=== PATIENT | male | born 1955 | race Caucasian/White ===

== ENCOUNTER 2022-10-16 09:59 | Outpatient (CLI) | payer OTHER, BC, SELFPAY ==
--- NOTE | 2022-10-16 10:15 | CRLHL7_ITS ---
For Patients: As a result of the Century Cures Act, medical imaging exams and procedure reports are released immediately into your electronic medical record. You may view this report before your referring provider. If you have questions, please contact your health care provider. Indication: Severe right arm pain Technique: MRI cervical spine without contrast: Sagittal STIR, T2 and T1 weighted sequences. The examination was terminated prematurely due to severe pain and no axial sequences were obtained. Comparison: Cervical radiographs 10/10/2022 and MRI 01/25/2017 Findings: There is straightening of normal cervical lordosis. Slight retrolisthesis at C4-5 and C5-6. The craniocervical junction is unremarkable. No prevertebral or paraspinal edema. No fractures. No aggressive osseous lesions. No definite abnormal intramedullary spinal cord signal on sagittal images. C1-2: No spinal canal stenosis. C2-3: No significant spinal canal stenosis or neural foramen narrowing. Modic type 2 endplate degenerative changes. C3-4: Slight retrolisthesis. Mild disc bulge. No significant spinal canal stenosis. Mild left neural foramen narrowing. C4-5: Resolution of the central disc protrusion. Slight worsening of disc height loss and disc dehydration. Minimal disc bulge. Modic type 2 endplate degenerative changes. No significant spinal canal stenosis. Mild bilateral neural foramen narrowing. C5-6: Disc osteophyte complex. No significant spinal canal stenosis. Uncovertebral joint hypertrophy results in similar moderate right neural foramina narrowing with possible impingement of the right C6 nerve roots. Moderate left neural foramen narrowing due to uncovertebral joint hypertrophy. C6-7: Disc osteophyte complex results in mild spinal canal narrowing. Moderate bilateral neural foramina narrowing due to uncovertebral joint hypertrophy. C7-T1: No significant spinal canal stenosis or neural foramen narrowing. T1-2: No significant spinal canal stenosis or neural foramen narrowing. Impression: 1. The examination was terminated prematurely due to severe pain. No axial sequences were obtained, which limits evaluation of the neural foramina 2. At C5-6, similar moderate right neural foramen narrowing due to uncovertebral joint hypertrophy with possible impingement of the right C6 nerve roots. Stable moderate left neural from narrowing. 3. At C6-7, moderate bilateral neural foramen narrowing due to uncovertebral joint hypertrophy. 4. Minimal narrowing of the spinal canal at C5-6 and C6-7. 5. No abnormal intramedullary spinal cord signal. Dictated by Hosea Avila MD @ 10/16/2022 12:29:38 PM (Electronically Signed)
== END 2022-10-16 10:00 | disposition home or self-care (01) ==
PROVIDERS: PCP Family Medicine; Visit Provider Family Medicine
DX: M79.601 Pain in right arm (principal); M79.2 Neuralgia and neuritis, unspecified; M50.222 Other cervical disc displacement at C5-C6 level; M50.223 Other cervical disc displacement at C6-C7 level
CPT/HCPCS: 72141

== ENCOUNTER 2022-11-20 07:11 | Outpatient (CLI) | payer OTHER, BC, SELFPAY ==
--- NOTE | 2022-11-20 07:15 | CRLHL7_ITS ---
For Patients: As a result of the Cures Act, medical imaging exams and procedure reports are released immediately into your electronic medical record. You may view this report before your referring provider. If you have questions, please contact your health care provider. Indication: Neck and right arm pain. Technique: MRI of the cervical spine was performed without the use of intravenous contrast. Comparison: None relevant available. Findings: Images mildly degraded by patient motion. The vertebral body heights appear maintained without evidence of fracture. No discrete T1 hypointense marrow infiltrating process. Mild multilevel disc height loss and desiccation. No abnormal cord signal. C2-3: No spinal canal or neural foraminal narrowing. C3-4: Trace retrolisthesis. No spinal canal narrowing. Mild to moderate right and mild left neural foraminal narrowing secondary to uncovertebral joint and facet hypertrophy. Stable. C4-5: Minimal disc bulge without spinal canal narrowing. Mild neural foraminal narrowing secondary to uncovertebral joint and facet hypertrophy. Stable. C5-6: Disc osteophyte complex with mild spinal canal narrowing. Moderate neural foraminal narrowing secondary to uncovertebral joint and facet hypertrophy. Stable. C6-7: Disc osteophyte complex with mild spinal canal narrowing. Moderate bilateral neural foraminal narrowing. Stable. C7-T1: No spinal canal or neural foraminal narrowing. Impression: 1. At C5-6 and C6-7, stable mild spinal canal with moderate neural foraminal narrowing. 2. Stable milder spondylosis at the remaining cervical levels. 3. No abnormal cord signal. Dictated by Arslan Damon MD @ 11/20/2022 10:00:40 AM (Electronically Signed)
== END 2022-11-20 07:12 | disposition home or self-care (01) ==
PROVIDERS: PCP Family Medicine; Visit Provider Physician Assistant
DX: M54.2 Cervicalgia (principal); M50.223 Other cervical disc displacement at C6-C7 level; M47.892 Other spondylosis, cervical region; M54.12 Radiculopathy, cervical region; M48.02 Spinal stenosis, cervical region
CPT/HCPCS: 72141

== ENCOUNTER 2024-10-17 09:37 | Emergency (ER) | payer MEDICARE, MEDICAID, SELFPAY ==
--- OUTSIDE RECORDS SUMMARY | 2024-10-17 09:39 | XMS_ITS | Continuity of Care Document ---
Author Organization [facility] Address [address] [place] [address] Phone Care Team Providers Care Caseworker Intake Name Role Phone Yazan Dee Unavailable Unavailab le Allergies, Adverse Reactions, Alerts Substance Reaction Status Criticality No Known Allergies Active No Inform ation Medications Medication Instructions Dosage Effective Dates (start - stop) Status Comments Valium 2 mg tablet take 1 tablet by oral route 30 mins prior to MRI scan and second tablet as needed for anxiety - Active IBUPROFEN (unknown strength) Not Available - Active GABAPENTIN (unknown strength) Not Available - Active Procedures Procedure Date OFFICE/OUTPATIENT VISIT EST Phone Office/Outpatient Visit,Hali Moses 2022 Advance Directives Directive Yes / No Effective Date File Name No Information Encounters Encounter Description Practice Location Reason(s) For Visit Diagnoses Date Provider Providers Copied on Encounter OFFICE/OUTPAT IENT VISIT EST Phone [facility], [address], [place], [id number], [place] tel:[phone] [facility] - [facility] No Information Sabrina Hand. [facility], [address], [address], [place], [address], [place]. tel:[phone] Referring Provider: Eladio Loaiza, [facility] [address] [place], [address]. tel:[phone] [place]pat [place] [place] [facility], [address], [place], [id number], [place] tel:[phone] [facility] - [place] Radiculopathy , cervical region Sabrina Hand. [facility], [address], [address], [place], [address], [place]. tel:[phone] Referring Provider: Eladio Loaiza, [facility] [address], [address]. tel:[phone] Family History Family Member Type Diagnosis Age At Onset No Information Payers Payer name Insurance type Covered constitution party ID Authoriza tion(s) No Information Social History Type Description Quantity Date Captured Comments Sex Male Smoking Status No Information Chief Complaint And Reason For Visit No Information Reason For Referral Reason For Referral No Information History Of Present Illness Encounter Date Complaint History Of Prese nt Illness No Information Functional Status Date Functional Assessmen t No Information Instructions Date Instruction Additional Infor mation No Information Assessments Type Assessment Date No Information Patient Care Teams Name Effective Dates (start - stop) Status Members No Information
--- OUTSIDE RECORDS SUMMARY | 2024-10-17 09:39 | XMS_ITS | Clinical Summary ---
Author Organization [facility] Address [address] [address] Phone Care Team Providers Care Hand Folder Name Role Phone Unavailable Primary Care Provider Unavailabl e Allergies No known active allergies Medications oxyCODONE (ROXICODONE) 5 MG immediate release tablet Take 1 Tab by mouth every four hours as needed for Pain . 10 Tab 06/06/2019 Active Social History Tobacco Use Types Packs/Day Years Used Date Smoking Tobacco: Never Assessed Sex and Gender Information Value Date Recorded Sex Assigned at Not on file Legal Sex Male 1:27 PM CDT Gender Identity Not on file Sexual Orientation Not on file Last Filed Vital Signs Vital Sign Reading Time Taken Comments Blood Pressure 138/74 06/06/2019 4:42 PM CDT Pulse 60 06/06/2019 4:42 PM CDT Temperature 36.7 C (98 F) 06/06/2019 4:42 PM CDT Respiratory Rate 18 06/06/2019 4:42 PM CDT Oxygen Saturation 95% 06/06/2019 4:42 PM CDT Inhaled Oxygen Concentration - - Weight 90.7 kg (200 lb) 06/06/2019 1:39 PM CDT Height 182.9 cm (6') 06/06/2019 1:39 PM CDT Body Mass Index 27.12 06/06/2019 1:39 PM CDT Plan of Treatment Not on file Insurance BL[employer]US PMAP
--- OUTSIDE RECORDS SUMMARY | 2024-10-17 09:39 | XMS_ITS | Encounter Summary ---
Author Organization [facility] Address [address] [place] [address] Care Team Providers Care Staff Genetic Counselor Name Role Phone Elsewhere, Pcp Primary Care Provider Unavailabl e Encounter Details Date Type Department Care Team (Latest Contact Info) Description 09/24/2024 8:11 AM MANAGER OF BUSINESS OPERATIONS - 09/24/2024 11:59 PM MANAGER OF BUSINESS OPERATIONS Hospital Encounter Department of Laboratory Medicine in [place], [place] [address] [place] [phone] Renny Mariano M.D. [address] [place] [phone] Department Of Transportation Examination Department Of Motor Vehicles Discharge Disposition: Home or Self Care Social History Tobacco Use Types Packs/Day Years Used Date Smoking Tobacco: Never Smokeless Tobacco: Never Alcohol Use Standard Drinks/Week Comments Yes 6 (1 standard drink = 0.6 oz pur e alcohol) PHQ-2 Answer Date Recorded PHQ-2 Score 0 03/28/2022 Nutrition Answer Date Recorded Nutrition: EVOO Fat Source 13 04/06 Nutrition: Servings of Fruits/Vegetables per Day Not on file 04/06/2020 Dental Answer Date Recorded Dental: Regular Dentist Unknown 11/11/19 21 Sex and Gender Information Value Date Recorded Sex Assigned at Not on file Legal Sex Male 10:20 PM MANAGER OF BUSINESS OPERATIONS Gender Identity Not on file Sexual Orientation Not on file documented as of this encounter Plan of Treatment Not on file documented as of this encounter Procedures Procedure Name Priority Date/Time Associated Diagnosis Comments URINALYSIS, DIPSTICK Routine 09/24/2024 8:20 AM MANAGER OF BUSINESS OPERATIONS Department Of Transportation Examination Department Of [employer] documented in this encounter Results * Urinalysis, Dipstick (09/24/2024 8:20 AM MANAGER OF BUSINESS OPERATIONS) Source Urine, Urine, Midstream 09/24/2024 8:20 AM MANAGER OF BUSINESS OPERATIONS NPCL Clarity Clear Clear 09/24/2024 8:23 AM MANAGER OF BUSINESS OPERATIONS NPCL Color Yellow 09/24/2024 8:23 AM MANAGER OF BUSINESS OPERATIONS NPCL Comment: ----REFERENCE VALUE---- Colorless Yellow Yoko Blood Negative Negative 09/24/2024 8:23 AM MANAGER OF BUSINESS OPERATIONS NPCL Nitrite Negative Negative 09/24/2024 8:23 AM MANAGER OF BUSINESS OPERATIONS NPCL Leukocyte Esterase Negative Negative 09/24/2024 8:23 AM MANAGER OF BUSINESS OPERATIONS NPCL Protein Negative mg/dL 09/24/2024 8:23 AM MANAGER OF BUSINESS OPERATIONS NPCL Comment: ----REFERENCE VALUE---- Negative Trace Glucose Negative Negative mg/dL 09/24/2024 8:23 AM MANAGER OF BUSINESS OPERATIONS NPCL Ketones, QI(U) Negative Negative mg/dL 09/24/2024 8:23 AM MANAGER OF BUSINESS OPERATIONS NPCL Bilirubin Negative Negative 09/24/2024 8:23 AM MANAGER OF BUSINESS OPERATIONS NPCL pH 7.0 5.0 - 8.0 09/24/2024 8:23 AM MANAGER OF BUSINESS OPERATIONS NPCL Specific [place] 1.020 1.001 - 1.035 09/24/2024 8:23 AM MANAGER OF BUSINESS OPERATIONS NPCL Urobilinogen 0.2 0.2 - 1.0 mg/dL 09/24/2024 8:23 AM MANAGER OF BUSINESS OPERATIONS NPCL Urine (Urine, Midstream) 09/24/2024 8:20 AM MANAGER OF BUSINESS OPERATIONS 09/24/2024 8:20 AM MANAGER OF BUSINESS OPERATIONS us Renny Mariano M.D. LAB URINE ORDERABLES Final Resu lt [facility] [address] [place] [id number], [facility] NPCL [facility] [place] - [address] [place] [address] documented in this encounter Visit Diagnoses Diagnosis Department Of Transportation Examination Department Of Motor Vehicles documented in this encounter Care Teams Staff Genetic Counselor Relationship Specialty Start Date End Date Elsewhere, Pcp PCP - General Family Medicine 12/12/17 documented as of this encounter
--- OUTSIDE RECORDS SUMMARY | 2024-10-17 09:39 | XMS_ITS | Encounter Summary ---
Author Organization [facility] Address [address] [place] [address] Care Team Providers Care Mechanical Laboratory Technician Name Role Phone Elsewhere, Pcp Primary Care Provider Unavailabl e Reason for Visit * Reason Onset Date Comments Form Review 09/24/2024 DOT Encounter Details Date Type Department Care Team (Latest Contact Info) Description 09/24/2024 Clinical Communication Department of Family Medicine in [place], [place] [address] [place] [phone] Renny Mariano M.D. [address] [place] [phone] Form Review (DOT) Social History Tobacco Use Types Packs/Day Years [...] on file Legal Sex Male 10:20 PM SUPERVISOR BRINE Gender Identity Not on file Sexual Orientation Not on file documented as of this encounter Miscellaneous Notes * Telephone Encounter - Nia Green L.P.NShari - 09/24/2024 4:31 PM SUPERVISOR BRINE DOT exam dated 09/24/[address] Mariano has been entered into the [facility] National Registry website and form sent to scanning. RVISOR BRINE documented in this encounter Plan of Treatment Not on file documented as of this encounter Visit Diagnoses Not on filedocumented in this encounter Care Teams Mechanical Laboratory Technician Relationship Specialty Start Date End Date Elsewhere, Pcp PCP - General Family Medicine 12/12/17 documented as of this encounter
--- OUTSIDE RECORDS SUMMARY | 2024-10-17 09:40 | XMS_ITS | Encounter Summary ---
Author Organization [facility] Address [address] [place] [address] Care Team Providers Care Valve Pipe Irrigator Name Role Phone Elsewhere, Pcp Primary Care Provider Unavailabl e Reason for Visit * Reason Comments DOT exam * Appointment Request (Routine) - Closed Specialty Diagnoses / Procedures Referred By Randall aguilera Referred To Contact Family Medicine Referral ID Status Reason Start Date Expiration Date Visits Re quested Visits Authorized [id number] Closed 09/12/2024 09/12/2025 1 1 Encounter Details Date Type Department Care Team (Latest Contact Info) Description 09/24/2024 8:30 AM OPERATIONS SECTION MANAGER Office Visit Department of Family Medicine in [place], [place] [address] [place] [phone] Renny Mariano M.D. [address] [place] [phone] Department Of Transportation Examination Department Of Motor Vehicles (Primary Dx); Blindness Legal; Loss Hearing Bilateral Social History Tobacco Use Types Packs/Day Years Used Date Smoking Tobacco: Never Smokeless Tobacco: Never Tobacco Cessation:Counseling Given: Yes Alcohol Use Standard Drinks/Week Comments Yes 6 (1 standard drink = 0.6 oz pur e alcohol) PHQ-2 Answer Date Recorded PHQ-2 Score 0 03/28/2022 Nutrition Answer Date Recorded Nutrition: EVOO Fat Source 13 04/06 Nutrition: Servings of Fruits/Vegetables per Day Not on file 04/06/2020 Dental Answer Date Recorded Dental: Regular Dentist Unknown 11/11/19 Sex and Gender Information Value Date Recorded Sex Assigned at Not on file Legal Sex Male 10:20 PM OPERATIONS SECTION MANAGER Gender Identity Not on file Sexual Orientation Not on file documented as of this encounter Last Filed Vital Signs Vital Sign Reading Time Taken Comments Blood Pressure 116/70 09/24/2024 8:23 AM OPERATIONS SECTION MANAGER Pulse 51 09/24/2024 8:23 AM OPERATIONS SECTION MANAGER Temperature 36.6 C (97.8 F) 09/24/2024 8:23 AM OPERATIONS SECTION MANAGER Respiratory Rate 20 09/24/2024 8:23 AM OPERATIONS SECTION MANAGER Oxygen Saturation - - Inhaled Oxygen Concentration - - Weight 88 kg (194 lb) 09/24/2024 8:23 AM OPERATIONS SECTION MANAGER Height 183 cm (6' 0.05) 09/24/2024 8:23 AM OPERATIONS SECTION MANAGER Body Mass Index 26.28 09/24/2024 8:23 AM OPERATIONS SECTION MANAGER documented in this encounter H&P Notes * Renny Mariano M.D. - 09/24/2024 8:30 AM CST SUBJECTIVE CHIEF COMPLAINT/REASON FOR VISIT DOT physical examination. HISTORY OF PRESENT ILLNESS Aron Hernandes is a 68 y.o. male who presents to the clinic today for DOT physical examination. This is his recertification. 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 He had right eye injury several years ago that damaged his retina. 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 He denies changes with his left eye vision.He is wearing glasses. He has history of color blindness. He was unable to distinguish green or redcolored. He was able to tell the traffic light signal by its position. He follows up with his triage assistant regularly in [place]. He has history of bilateral sensorineural hearing loss. He is using hearing aids. There is no concern regarding balance disorder, vertigo, loss of consciousness. He denies history of seizure disorder. He denies history of chronic heart disease or chronic lung disease. There is no concern regarding lightheadedness, near syncopal episode, headache, chest pain, palpitation, shortness of breath, orthopnea. He denies history of COPD or asthma. There is no concern regarding shortness of breath, wheezing, hemoptysis. He denies changes with his vision or hearing. He denies history of back surgery or neck surgery. There is no concern regarding being charged for DUI. He reports that he had his company driver license revoked approximately 6 months ago due to forgot to pay fines. He was able to redeem it. He denies history of major motor vehicle accident recently. There is no concern regarding syncope, balance disorder, hearing changes, seizure disorder, or obstructive sleep apnea. He reports that at times he has numbness on his hands and feet. He denies history of diabetes. 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 There was no history of fall. He was able to schedule an eye examination visit with his triage assistant in [place] later this morning. He brought the documentation that was signed off by the triage assistant. He was cleared and deemed to be safe to operate commercial motor vehicle. CURRENT MEDICATIONS None. ALLERGIES / CONTRAINDICATIONS No Known Allergies REVIEW OF SYSTEMS Reviewed as mentioned in HPI, the rest of review of systems are negative. MEDICAL HISTORY Right eye legally blind. Bilateral sensorineural hearing loss. Color blindness. SURGICAL HISTORY Right eye enucleation procedure. Appendectomy. Right knee arthroscopy procedure. SOCIAL HISTORY He is single. He is self-employed. He works as a mock and rancher. He denies smoking cigarettes or chewing tobacco. He drinks alcohol 2 servings on a nightly basis. He denies using recreational drugs. OBJECTIVE VITAL SIGNS BP 116/70 Pulse (!) 51 Temp 36.6 ??C Resp 20 Ht 183 cm Wt 88 kg BMI 26.28 kg/m?? PHYSICAL EXAMINATION General: Alert, oriented x3, not in acute distress. HEENT: Normocephalic. Right eye: There is noted prosthesis in place. Left eye: Pupil is round, reactive to light and accommodation. Extraocular muscles are intact. Ears: Tympanic membranes are intactbilaterally. No erythema or bulging. No effusion. Nose: Patent. No drainage. Pharynx: Membrane mucosa is moist. No hyperemia or exudates. Neck is supple. No cervical lymphadenopathy or thyromegaly. Cardiovascular: S1, S2, regular rate rhythm. No murmur or gallops. No JV distention or bruit. Lungs: Clear breath sounds. No crackles or expiratory wheezes. Abdomen: Soft, nontender. Bowel sounds heard in all 4 quadrants. : Circumcised penis. Testicles are descended bilaterally. No mass palpated. No hernia. Extremities: No edema on bilateral lower extremities. Gait is normal. He has good and full range ofmotion. He is able to do forward flexion, toe walking, heel walking, and squatting. Neuro: Cranial nerves II-XII grossly intact. No focal neurological deficit. Sensory is intact. Motor strength 5/5 on all 4 extremities. Coordination test is intact. Romberg test is negative. Skin: No rash. Right eye vision 20/0, corrected left eye 20/20. Horizontal field of vision 120 degree. He passes whispering test on both ears within 7 ft. Urine dipstick show specific gravity 1.020, negative for protein, glucose, or blood. ASSESSMENT / PLAN 1. DOT physical examination. 2. Right eye legally blind. 3. Color blindness. 4. Bilateral sensorineural hearing loss. Given the history of right eye legally blind(monocular vision), he is required to have alternative vision qualification standard examination. He was evaluated by his triage assistant earlier today and he had the vision evaluation report [id number] 5871 form completed accordingly. I reviewed the forearm and hewas cleared and deemed safe to operate commercial motor vehicle. He was provided DOT certificate that will qualify for 1 year. He was reminded that in the near future he should have his MCSA 5871 form completed prior to coming to see me. Typically he has 45 days timeframe from the form was signed. He is in understanding and agreement with the plan. ATIONS SECTION MANAGER documented in this encounter Plan of Treatment Not on file documented as of this encounter Results * Urinalysis, Dipstick (09/24/2024 8:20 AM OPERATIONS SECTION MANAGER) Source Urine, Urine, Midstream 09/24/2024 8:20 AM OPERATIONS SECTION MANAGER NPCL Clarity Clear Clear 09/24/2024 8:23 AM OPERATIONS SECTION MANAGER NPCL Color Yellow 09/24/2024 8:23 AM OPERATIONS SECTION MANAGER NPCL Comment: ----REFERENCE VALUE---- Colorless Yellow Yoko Blood Negative Negative 09/24/2024 8:23 AM OPERATIONS SECTION MANAGER NPCL Nitrite Negative Negative 09/24/2024 8:23 AM OPERATIONS SECTION MANAGER NPCL Leukocyte Esterase Negative Negative 09/24/2024 8:23 AM OPERATIONS SECTION MANAGER NPCL Protein Negative mg/dL 09/24/2024 8:23 AM OPERATIONS SECTION MANAGER NPCL Comment: ----REFERENCE VALUE---- Negative Trace Glucose Negative Negative mg/dL 09/24/2024 8:23 AM OPERATIONS SECTION MANAGER NPCL Ketones, QI(U) Negative Negative mg/dL 09/24/2024 8:23 AM OPERATIONS SECTION MANAGER NPCL Bilirubin Negative Negative 09/24/2024 8:23 AM OPERATIONS SECTION MANAGER NPCL pH 7.0 5.0 - 8.0 09/24/2024 8:23 AM OPERATIONS SECTION MANAGER NPCL Specific [place] 1.020 1.001 - 1.035 09/24/2024 8:23 AM OPERATIONS SECTION MANAGER NPCL Urobilinogen 0.2 0.2 - 1.0 mg/dL 09/24/2024 8:23 AM OPERATIONS SECTION MANAGER NPCL Urine (Urine, Midstream) 09/24/2024 8:20 AM OPERATIONS SECTION MANAGER 09/24/2024 8:20 AM OPERATIONS SECTION MANAGER us Renny Mariano M.D. LAB URINE ORDERABLES Final Resu lt [facility] [address] [place] [address], [facility] NPCL [address] [place] [id number] documented in this encounter Visit Diagnoses Diagnosis Department Of Transportation Examination Department Of Motor Vehicles- Primary Blindness Legal Loss Hearing Bilateral documented in this encounter Care Teams Valve Pipe Irrigator Relationship Specialty Start Date End Date Elsewhere, Pcp PCP - General Family Medicine 12/12/17 documented as of this encounter
--- OUTSIDE RECORDS SUMMARY | 2024-10-17 09:40 | XMS_ITS | Continuity of Care Document ---
Author Organization [facility] Address [address] [place] [address] Phone Care Team Providers Care Services Program Manager Name Role Phone Hollie De La Torre DO Unavailable Unavailab le Advance Directives Directive Yes / No Effective Date File Name No Information Encounters Encounter Description Practice Location Reason(s) For Visit Diagnoses Date Provider Providers Copied on Encounter [facility], [address], [place], [address], [place] [phone] [facility], No Information Dougie Browne. [address], [place], [address], [place]. tel:[phone] Family History Family Member Type Diagnosis Age At Onset No Information Payers Payer name Insurance type Covered green party ID Authoriza tion(s) No Information Social History Type Description Quantity Date Captured Comments Alcohol Use Details Unknown Caffeine Use Details Unknown Tobacco Use Status No Information Smoking Status No Information Sex Male Chief Complaint And Reason For Visit No [...]
--- OUTSIDE RECORDS SUMMARY | 2024-10-17 09:40 | XMS_ITS | Continuity of Care Document ---
Author Organization [facility] Address [address] [place] [address] Care Team Providers Care Senior Dot Net Developer Name Role Phone Elsewhere, Pcp Primary Care Provider Unavailabl e Source Comments Patient records contain information from all sites at [facility]. For routine questions regarding patient records, call [phone] during business hours, M-F 8:00 AM - 5:00 PM Central Time. Record requests for emergency care only can be directed to [phone] at any time.[facility] Encounters Date Type Department Care Team Description 09/24/2024 Clinical Communication Department of Family Medicine in [address] [address] Renny Mariano M.D. Form Review (DOT) 09/24/2024 8:11 AM SHOP FOREMAN - 09/24/2024 11:59 PM SHOP FOREMAN Hospital Encounter Department of Laboratory Medicine in [place] [address] [place] [address] Renny Mariano M.D. Department Of Transportation Examination Department Of Motor Vehicles Discharge Disposition: Home or Self Care 09/24/2024 8:30 AM SHOP FOREMAN Office Visit Department of Family Medicine in [address] [address] Renny Mariano M.D. Department Of Transportation Examination Department Of HihoCoder (Primary Dx); Blindness Legal; Loss Hearing Bilateral 02/05/2024 [facility] Emergency/Urgent Care Department [address] [place] [address] Francisco Javier Chino M.D., M.B.A. Med Refill 01/28/2024 8:53 AM CDT - 01/28/2024 9:20 AM CDT Emergency [place] Emergency/Urgent Care Department [facility] [address] [place] [address] Francisco Javier Chino M.D., M.B.A. Acute Bronchitis Due To COVID-19 (Primary Dx); Bursitis Discharge Disposition: Home or Self Care 08/11/2022 7:49 AM SHOP FOREMAN - 08/11/2022 9:16 AM SHOP FOREMAN Emergency [place] Emergency/Urgent Care Department [address] [place] [address], [place] [address] Venita Alonzo D.O. [place], Barrett R, M.D. Bronchiolitis With Respiratory Syncytial Virus (Primary Dx) Discharge Disposition: Home or Self Care 06/20/2022 2:45 PM CDT Office Visit Urgent Care, [facility], in [place] [address] [place] [address] Kinza Miller APRN, C.N.P., D.N.P. Paresthesia (Primary Dx); Swelling Foot Discharge Disposition: Home or Self Care 04/06/2022 Clinical Communication Department of Family Medicine in [place], [place] [address] [place] [address] Elsewhere, Pcp 03/28/2022 9:00 AM CDT Comprehensive Visit Department of Family Medicine in [place], [place] [address] [place] [address] Blair Rodriguez M.D. Edema (Primary Dx); Need Vaccine Immunization Tetanus And Diphtheria Toxoids And Pertussis; Screening Cancer Colon 03/10/2022 2:31 PM CDT - 03/10/2022 4:58 PM CDT Emergency [place] Emergency[facility]gent [facility] Department [address] [place] [address] Matt Woods M.D. Swelling Foot (Primary Dx) Discharge Disposition: Home or Self Care 07/21/2021 Orders Only [facility] Rosalva Alegre D.O., M.B.A. 03/22/2019 5:10 AM CDT - 03/22/2019 6:04 AM CDT Emergency [place] Emergency/Urgent Care Department [address] [place] [address] Maite Cleveland M.D. Strain Neck Initial (Primary Dx) Discharge Disposition: Home or Self Care 12/12/2017 9:00 AM CDT Diagnostic Department of Neurology in [place], [place] [address] [place] [address] Chaitanya Laurent M.D. Numbness Hand 07/04/2017 8:00 AM CDT - 07/04/2017 11:59 PM CDT Hospital Encounter [facility] Sebastian Dean M.D. 06/20/2017 6:14 AM CDT - 06/20/2017 10:23 AM CDT [facility] 06/13/2017 10:56 AM CDT - 06/13/2017 11:59 PM CDT Hospital Encounter [facility] Sebastian Dean M.D. 03/22/2016 10:48 AM CDT - 03/22/2016 11:59 PM CDT Hospital Encounter [facility]X [facility] Chaitanya Verdugo M.D. 08/09/2015 6:05 AM SHOP FOREMAN - 08/09/2015 6:52 AM SHOP FOREMAN [facility]. 08/21/2012 10:01 AM SHOP FOREMAN - 08/21/2012 11:59 PM SHOP FOREMAN Hospital Encounter HX NO MAPPING Raya Yoder APRN, C.N.P. Allergies No known active allergies Medications methylPREDNISo lone (MEDROL DOSEPAK) 4 mg tabletIndicati ons:Paresthesi a Follow package directions. 21 tablet 2 09/24/19 25 Discontinued dextromethorph an-guaiFENesin (ROBITUSSIN-DM ) 10-100 mg/5 mL syrup Take 5 mL by mouth every 4 (four) hours as needed for cough. 236 mL 2 09/24/19 25 Discontinued cephalexin (KEFLEX) 500 mg capsule Take 1 capsule (500 mg total) by mouth 3 (three) times a day. 21 capsule 4 09/24/19 25 Discontinued naproxen (NAPROSYN) 375 mg tablet Take 1 tablet (375 mg total) by mouth 2 (two) times a day with meals for 10 days. 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 Immunizations Immunization Administration Dates Next Due Influenza high dose QV(65 ye ars or older) (PF) 06/06/2021 RZV (SHINGRIX) 08/28/2019,04/24/2019 SARS-COV-2 (COVID-19) - PFIZ ER TS(Discontinued)(12 years or older) 03/28/2022 Tdap 03/28/2022,10/23/2011 influenza vaccine quad (FLUZONE/FLUARIX) (6 months and older)(PF) 07/05/2020,04/24/2019,06/28/2018,2014 Family History Medical History Relation Name Comments Heart attack Brother Heart attack Father Prostate cancer Father Relation Name Status Comments Brother Father Social History Smoking Status as of 10/17/2024 Tobacco Use Types Packs/Day Years Used Date Smoking Tobacco: Never Assessed PHQ-2 Answer Date Recorded PHQ-2 Score 0 03/28/2022 Nutrition Answer Date Recorded Nutrition: EVOO Fat Source 13 04/06 Nutrition: Servings of Fruits/Vegetables per Day Not on file 04/06/2020 Dental Answer Date Recorded Dental: Regular Dentist Unknown 11/11/19 21 Sex and Gender Information Value Date Recorded Sex Assigned at Not on file Legal Sex Male 10:20 PM SHOP FOREMAN Gender Identity Not on file Sexual Orientation Not on file Last Filed Vital Signs Vital Sign Reading Time Taken Comments Blood Pressure 116/70 09/24/2024 8:23 AM SHOP FOREMAN Pulse 51 09/24/2024 8:23 AM SHOP FOREMAN Temperature 36.6 C (97.8 F) 09/24/2024 8:23 AM SHOP FOREMAN Respiratory Rate 20 09/24/2024 8:23 AM SHOP FOREMAN Oxygen Saturation 97% 01/28/2024 9:00 AM CDT Inhaled Oxygen Concentration - - Weight 88 kg (194 lb) 09/24/2024 8:23 AM SHOP FOREMAN Height 183 cm (6' 0.05) 09/24/2024 8:23 AM SHOP FOREMAN Body Mass Index 26.28 09/24/2024 8:23 AM SHOP FOREMAN Plan of Treatment Not on file Procedures Procedure Name Priority Date/Time Associated Diagnosis Comments URINALYSIS, DIPSTICK Routine 09/24/2024 8:20 AM SHOP FOREMAN Department Of Transportation Examination Department Of The Mother List Vehicles INFLUENZA A, B, RSV, PCR, POCT STAT 01/28/2024 9:15 AM CDT SARS CORONAVIRUS 2, PCR RAPID, V STAT 01/28/2024 9:15 AM CDT DX CHEST AP OR PA AND LATERAL 2 VIEWS RAD - Semiurgent (Fast; most ED patients; some inpatients) 08/11/2022 8:16 AM SHOP FOREMAN ECG STAT 08/11/2022 8:07 AM SHOP FOREMAN INFLUENZA A, B, RSV, PCR, POCT Routine 08/11/2022 8:02 AM SHOP FOREMAN INFLUENZA A, B, RSV, PCR, POCT STAT 08/11/2022 7:55 AM SHOP FOREMAN SARS CORONAVIRUS 2, PCR RAPID, V STAT 08/11/2022 7:55 AM SHOP FOREMAN URINALYSIS WITH MICROSCOPIC Routine 03/28/2022 9:59 AM CDT Edema SEDIMENTATION RATE, B Routine 03/28/2022 9:55 AM CDT Edema C-REACTIVE PROTEIN (CRP), S/P Routine 03/28/2022 9:55 AM CDT Edema CREATININE WITH EGFR, S/P Routine 03/28/2022 9:55 AM CDT Edema US LOWER EXTREMITY VEINS RIGHT RAD - Semiurgent (Fast; most ED patients; some inpatients) 03/10/2022 3:34 PM CDT DX FOOT RIGHT 3+ VIEWS RAD - Semiurgent (Fast; most ED patients; some inpatients) 03/10/2022 3:27 PM CDT MORPHOLOGY EVALUATION STAT 03/10/2022 2:56 PM CDT URIC ACID, S/P STAT 03/10/2022 2:56 PM CDT CBC WITH DIFFERENTIAL, B STAT 03/10/2022 2:56 PM CDT EMG Routine 12/12/2017 8:01 AM CDT Numbness Hand DX KNEE RIGHT 4+ VIEWS Routine 06/13/2017 11:39 AM CDT US LOWER EXTREMITY VEINS LEFT Routine 03/22/2016 11:30 AM CDT DX CHEST AP OR PA AND LATERAL 2 VIEWS Routine 08/21/2012 10:18 AM SHOP FOREMAN OPHTHALMOLOGY IMAGE EXAM Routine 03/27/2000 12:00 PM CDT Results * Urinalysis, Dipstick (09/24/2024 8:20 AM SHOP FOREMAN) Source Urine, Urine, Midstream 09/24/2024 8:20 AM SHOP FOREMAN NPCL Clarity Clear Clear 09/24/2024 8:23 AM SHOP FOREMAN NPCL Color Yellow 09/24/2024 8:23 AM SHOP FOREMAN NPCL Comment: ----REFERENCE VALUE---- Colorless Yellow Yoko Blood Negative Negative 09/24/2024 8:23 AM SHOP FOREMAN NPCL Nitrite Negative Negative 09/24/2024 8:23 AM SHOP FOREMAN NPCL Leukocyte Esterase Negative Negative 09/24/2024 8:23 AM SHOP FOREMAN NPCL Protein Negative mg/dL 09/24/2024 8:23 AM SHOP FOREMAN NPCL Comment: ----REFERENCE VALUE---- Negative Trace Glucose Negative Negative mg/dL 09/24/2024 8:23 AM SHOP FOREMAN NPCL Ketones, QI(U) Negative Negative mg/dL 09/24/2024 8:23 AM SHOP FOREMAN NPCL Bilirubin Negative Negative 09/24/2024 8:23 AM SHOP FOREMAN NPCL pH 7.0 5.0 - 8.0 09/24/2024 8:23 AM SHOP FOREMAN NPCL Specific Galt 1.020 1.001 - 1.035 09/24/2024 8:23 AM SHOP FOREMAN NPCL Urobilinogen 0.2 0.2 - 1.0 mg/dL 09/24/2024 8:23 AM SHOP FOREMAN NPCL Urine (Urine, Midstream) 09/24/2024 8:20 AM SHOP FOREMAN 09/24/2024 8:20 AM SHOP FOREMAN us Renny Mariano M.D. LAB URINE ORDERABLES Final Resu lt [facility] [address] [place] [address], [facility] [place] [address] * SARS Coronavirus 2, PCR Rapid Symptomatic (01/28/2024 9:15 AM CDT) Only the most recent of2 resultswithin the time period is included. SARS CoV-2, PCR, Rapid, V Undetected Undetected 01/28/2024 9:25 AM CDT NPRG Comment: ----ADDITIONAL INFORMATION---- This RT-PCR test was performed using the [employer] SARS-CoV-2 and Influenza A/B Reagent assay from [employer], which has received Emergency Use Authorization(EUA) by the U.S. Food and Drug Administration. Fact sheets for this Emergency Use Authorization (EUA) assay can be found at the following links: For Healthcare Providers: https://www.fda.gov/media/219056/download For Patients: https://www.fda.gov/media/060021/download SARS Coronavirus 2, Source, Rapid Swab, Nasopharynx 01/28/2024 9:25 AM CDT NPRG Swab (Nasopharynx) 01/28/2024 9:15 AM CDT 01/28/2024 9:25 AM CDT Francisco Javier Chino M.D., M.B.A. LAB MICROBIOLOGY - GENERAL ORDERABLES Final Result Performing Organization Address [facility] Co de Phone Number [facility] [address] [place] [address], [place] [address] [place] [address] * Influenza A/B and RSV, PCR, Point of Care (01/28/2024 9:15 AM CDT) Only the most recent of3 resultswithin the time period is included. Pathologist [facility] Influenza A, POCT Negative Negative 01/28/2024 9:28 AM CDT NPRG Influenza B, POCT Negative Negative 01/28/2024 9:28 AM CDT NPRG Resp Syncytial Virus, POCT Negative Negative 01/28/2024 9:28 AM CDT NPRG Swab (Nasopharynx) 01/28/2024 9:15 AM CDT 01/28/2024 9:25 AM CDT Francisco Javier Chino M.D., M.B.A. LAB POCT ORDERABLE S - DEVICE Final Result Performing Organization Address [facility] Co de Phone Number [facility] [address] [place] [address], [place] [address] [place] [address] * DX Chest AP or PA and Lateral 2 Views (08/11/2022 8:16 AM SHOP FOREMAN) Only the most recent of2 resultswithin the time period is included. Anatomical Region Laterality Modality Chest, Thoracic RST LOS, Tho racic ARZ LOS, Thoracic FLA LOS N/A Digital Radiography 08/11/2022 8:21 AM SHOP FOREMAN Impressions 08/11/2022 8:22 AM SHOP FOREMAN Lungs are clear. Calcified hilar lymph nodes. Normal heart size. No change since 08/21/2012. Narrative 08/11/2022 8:22 AM SHOP FOREMAN EXAM: DX CHEST AP OR PA AND LATERAL 2 VIEWS Procedure Note Jeremy Euceda M.D. - 08/11/2022 EXAM: DX CHEST AP OR PA AND LATERAL 2 VIEWS IMPRESSION: Lungs are clear. Calcified hilar lymph nodes. Normal heart size. No changesince 08/21/2012. us Tri Peewee V. Alonzo D.O. IMG DIAGNOSTIC IMAGING PRO CEDURES Final Result * ECG 12 Lead (08/11/2022 8:07 AM SHOP FOREMAN) Ventricular Rate ECG/Min 61 BPM MUSE CO Interval 170 ms MUSE QRSD Interval 76 ms MUSE QT Interval 398 ms MUSE QTC Interval 400 ms MUSE P [place] 49 degrees MUSE R [place] 8 degrees MUSE T Wave [place] 38 degrees MUSE 08/11/2022 8:07 AM SHOP FOREMAN 08/11/2022 8:48 AM SHOP FOREMAN Impressions MUSE - 08/11/2022 8:17 AM SHOP FOREMAN Normal sinus rhythm Cannot rule out Inferior infarct No previous ECGs available Reviewed by KARLO Valdez Narrative Procedure Note Vasquez Lake M.D. - 08/11/2022 IMPRESSION: Normal sinus rhythm Cannot rule out Inferior infarct No previous ECGs available Reviewed by KARLO Valdez us Tri Peewee V. Alonzo D.O. ECG ORDERABLES Edited Res ult - Final MUSE NA * (ABNORMAL) Urinalysis with Microscopic: Urine, Midstream (03/28/2022 9:59 AM CDT) Source Urine, Urine, Midstream 03/28/2022 9:59 AM CDT NPCL Clarity Slightly Cloudy(A) Clear 03/28/2022 10:53 AM CDT NPCL Color Yellow 03/28/2022 10:53 AM CDT NPCL Comment: ----REFERENCE VALUE---- Colorless Yellow Yoko Blood Negative Negative 03/28/2022 10:53 AM CDT NPCL Nitrite Negative Negative 03/28/2022 10:53 AM CDT NPCL Leukocyte Esterase Negative Negative 03/28/2022 10:53 AM CDT NPCL Protein Negative mg/dL 03/28/2022 10:53 AM CDT NPCL Comment: ----REFERENCE VALUE---- Negative Trace Glucose Negative Negative mg/dL 03/28/2022 10:53 AM CDT NPCL Ketones, QI(U) Negative Negative mg/dL 03/28/2022 10:53 AM CDT NPCL Bilirubin Negative Negative 03/28/2022 10:53 AM CDT NPCL pH 6.5 5.0 - 8.0 03/28/2022 10:53 AM CDT NPCL Specific Galt 1.020 1.001 - 1.035 03/28/2022 10:53 AM CDT NPCL Urobilinogen 0.2 0.2 - 1.0 mg/dL 03/28/2022 10:53 AM CDT NPCL White Blood Cells Occ-3 /hpf 03/28/2022 12:26 PM CDT NPRG Comment: REVISED RESULTS ----REFERENCE VALUE---- Males: 0-3 Females: 0-10 Unknown: 0-10 ----PREVIOUSLY REPORTED ---- 11-20, Flagged as: Abnormal (Reported 03/28/2022 12:19) Red Blood Cells Occ-2 0 - 2 /hpf 12:19 PM CDT NPRG Dysmorphic Red Blood Cells <=25 <=25 % 03/28/2022 12:19 PM CDT NPRG Squamous Cells Occ-3 /hpf 03/28/2022 12:26 PM CDT NPRG Comment: REVISED RESULTS ----PREVIOUSLY REPORTED ---- 41-50, Flagged as: Normal (Reported 03/28/2022 12:19) Urine (Urine, Midstream) 03/28/2022 9:59 AM CDT 03/28/2022 9:59 AM CDT Blair Rodriguez M.D. LAB URINE ORDERABLES Edited Resu lt - Final [facility] [address] [place] [address], [facility] NPCL [facility] [address] [place] [address] NPRG [facility] [address] [place] [address] * Sedimentation Rate (03/28/2022 9:55 AM CDT) Sedimentation Rate, B 5 0 - 22 mm/1 h 03/28/2022 3:27 PM CDT MKTO Blood (Blood, Venous) 03/28/2022 9:55 AM CDT 03/28/2022 2:53 PM CDT Blair Rodriguez M.D. LAB BLOOD ADD-ON Final Result [facility] [address] [place] [address], [facility] MKTO [facility] [address] [place] [address] * CRP (C-Reactive Protein) (03/28/2022 9:55 AM CDT) C-Reactive Protein (CRP), P <3.0 <=8.0 mg/L 03/28/2022 10:41 AM CDT NPRG Blood (Blood, Venous) 03/28/2022 9:55 AM CDT 03/28/2022 10:07 AM CDT Blair Rodriguez M.D. LAB BLOOD ADD-ON Final Result [facility] [address] [place] [address], [place] NPRG [facility] [address] [place] [address] * Creatinine with Estimated GFR (03/28/2022 9:55 AM CDT) Creatinine 1.02 0.74 - 1.35 mg/dL 03/28/2022 10:41 AM CDT NPRG eGFR-Black/Afric an Sierra Leonean 88 >=60 mL/min/BSA 03/28/2022 10:41 AM CDT NPRG Comment: ----ADDITIONAL INFORMATION---- Estimated GFR calculated using the 2009 CKD_EPI creatinine equation. eGFR Non-Black/Vi n Sierra Leonean 76 >=60 mL/min/BSA 03/28/2022 10:41 AM CDT NPRG Comment: ----ADDITIONAL INFORMATION---- Estimated GFR calculated using the 2009 CKD_EPI creatinine equation. Blood (Blood, Venous) 03/28/2022 9:55 AM CDT 03/28/2022 10:07 AM CDT Blair Rodriguez M.D. LAB BLOOD ADD-ON Final Result [facility] [address] [place] [address], [facility] [place] [address] [place] [address] * US Lower Extremity Veins Right (03/10/2022 3:34 PM CDT) Anatomical Region Laterality Modality Lower Extremity, Ultrasound RST LOS, Ultrasound ARZ LOS, Ultrasound FLA LOS Right Ultrasound 03/10/2022 3:40 PM CDT Impressions 03/10/2022 3:45 PM CDT Negative for acute DVT. . Narrative 03/10/2022 3:45 PM CDT EXAM: US LOWER EXTREMITY VEINS RIGHT Exam performed with color and spectral Doppler analysis. COMPARISON: None. FINDINGS: RIGHT: Common Femoral Vein: Negative. . Profunda Femoral Vein: Negative. . Femoral Vein: Negative. . Popliteal Vein: Negative. . Gastrocnemius Veins: Negative where seen. . Soleal Veins: Negative where seen. . Posterior Tibial Veins: Negative where seen. . Peroneal Veins: Negative where seen. . Great Saphenous Vein: Negative where seen. . Small Saphenous Vein: Not evaluated. . Popliteal Fossa: Popliteal cyst measuring 4.5 x 1.4 x 0.7 cm. Other: n/a Information on venous thrombosis and management can be found on the Shut Down site. Link [email or web address] Procedure Note Harjinder León M.D. - 03/10/2022 EXAM: US LOWER EXTREMITY VEINS RIGHT Exam performed with color and spectral Doppler analysis. COMPARISON: None. FINDINGS: RIGHT: Common Femoral Vein: Negative. . Profunda Femoral Vein: Negative. . Femoral Vein: Negative. . Popliteal Vein: Negative. . Gastrocnemius Veins: Negative where seen. . Soleal Veins: Negative where seen. . Posterior Tibial Veins: Negative where seen. . Peroneal Veins: Negative where seen. . Great Saphenous Vein: Negative where seen. . Small Saphenous Vein: Not evaluated. . Popliteal Fossa: Popliteal cyst measuring 4.5 x 1.4 x 0.7 cm. Other: n/a Information on venous thrombosis and management can be found on theShut Down site. [email or web address] -[email or web address] 1725 IMPRESSION: Negative for acute DVT. . us Matt Woods M.D. IMG US PROCEDURES Final Resu lt * DX Foot Right 3+ Views (03/10/2022 3:27 PM CDT) Anatomical Region Laterality Modality Lower Extremity, Foot, Muscu loskeletal RST LOS, Musculoskeletal ARZ LOS, Muskuloskeletal FLA LOS Right Digit al Radiography 03/10/2022 3:31 PM CDT Impressions 03/10/2022 3:40 PM CDT Three-view right foot including AP view both feet demonstrates mild diffuse soft tissue swelling of the right foot. There is early degenerative change at the right second and third metatarsophalangeal joints. 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 Exam otherwise negative. Narrative 03/10/2022 3:40 PM CDT EXAM: DX FOOT RIGHT 3+ VIEWS Procedure Note Harjinder León M.D. - 03/10/2022 EXAM: DX FOOT RIGHT 3+ VIEWS IMPRESSION: Three-view right foot including AP view both feet demonstrates milddiffuse soft tissue swelling of the right foot. There is early degenerative change at theright second and third metatarsophalangeal joints. Mild degenerative arthritis left firstmetatarsal phalangeal joint. Exam otherwise negative. us Matt Woods M.D. IMG DIAGNOSTIC IMAGING [facility] Final Result * Morphology Evaluation (03/10/2022 2:56 PM CDT) RBC Morphology Normal 03/10/2022 3:29 PM CDT NPRG PLT Morphology Normal 03/10/2022 3:29 PM CDT NPRG PLT Estimate Adequate Adequate 03/10/2022 3:29 PM CDT NPRG Blood 03/10/2022 2:56 PM CDT 03/10/2022 2:59 PM CDT us Matt Woods M.D. LAB BLOOD ADD-ON Final Resul t [facility] [address] [place] [address], [facility] NPRG [facility] [address] [place] [address] * (ABNORMAL) CBC with Differential, Blood (03/10/2022 2:56 PM CDT) Hemoglobin 14.1 13.2 - 16.6 g/dL 03/10/2022 3:29 PM CDT NPRG Hematocrit 42.1 38.3 - 48.6 % 03/10/2022 3:29 PM CDT NPRG Erythrocytes 4.86 4.35 - 5.65 x10(12)/L 03/10/2022 3:29 PM CDT NPRG MCV 86.6 78.2 - 97.9 fL 03/10/2022 3:29 PM CDT NPRG RBC Distrib Width 14.8(H) 11.8 - 14.5 % 03/10/2022 3:29 PM CDT NPRG Platelet Count 209 135 - 317 x10(9)/L 03/10/2022 3:29 PM CDT NPRG Leukocytes 5.4 3.4 - 9.6 x10(9)/L 03/10/2022 3:29 PM CDT NPRG Neutrophils 2.45 1.56 - 6.45 x10(9)/L 03/10/2022 3:29 PM CDT NPRG Lymphocytes 1.96 0.95 - 3.07 x10(9)/L 03/10/2022 3:29 PM CDT NPRG Monocytes 0.82(H) 0.26 - 0.81 x10(9)/L 03/10/2022 3:29 PM CDT NPRG Eosinophils 0.15 0.03 - 0.48 x10(9)/L 03/10/2022 3:29 PM CDT NPRG Basophils 0.03 0.01 - 0.08 x10(9)/L 03/10/2022 3:29 PM CDT NPRG Blood (Blood, Venous) 03/10/2022 2:56 PM CDT 03/10/2022 2:59 PM CDT us Matt Woods M.D. LAB BLOOD ADD-ON Final Resul t [facility] [address] [place] [facility] [address], [facility] NPRG [facility] [address] [place] [address] * Uric Acid (03/10/2022 2:56 PM CDT) Uric Acid, P 4.6 3.7 - 8.0 mg/dL 03/10/2022 3:23 PM CDT NPRG Blood (Blood, Venous) 03/10/2022 2:56 PM CDT 03/10/2022 2:59 PM CDT us Matt Woods M.D. LAB BLOOD ADD-ON Final Resul t [facility] [address] [place] [address], [facility] NPRG [facility] [address] [place] [address] * EMG (12/12/2017 8:01 AM CDT) Impressions EMG - 12/12/2017 8:01 AM CDT Done Externally - Refer to [facility]. [facility] Administrative Closure us Chaitanya Laurent M.D. NEUROLOGY ORDERABLES Final Re sult EMG * DX Knee Right 4+ Views (06/13/2017 11:39 AM CDT) Anatomical Region Laterality Modality Lower Extremity, Knee Right Radiograph ic Imaging 06/13/2017 11:3 9 AM CDT Impressions 06/13/2017 1:27 PM CDT Mild degenerative changes with medial and lateral compartment chondrocalcinosis. No acute osseous abnormality right knee. Narrative 06/13/2017 1:27 PM CDT Standing AP/PA and sunrise views of the knees were obtained with lateral view of the right knee. FINDINGS: The joint spaces are well maintained. There is chondrocalcinosis involving both the medial and lateral compartments of the right and left knees. No significant right joint effusion identified. No acute osseous abnormality. Regional soft tissues normal in appearance. There is degenerative spurring involving the medial/lateral and patellofemoral compartments of the left knee. Procedure Note Matt Iniguez M.D. - 06/21/2017 Standing AP/PA and sunrise views of the knees were obtained with lateral view of the right knee. FINDINGS: The joint spaces are well maintained. There is chondrocalcinosis involving both the medial and lateral compartments of the right and left knees. No significant right joint effusion identified. No acute osseous abnormality. Regional soft tissues normal in appearance. There is degenerative spurring involving the medial/lateral and patellofemoral compartments of the left knee. IMPRESSION: Mild degenerative changes with medial and lateral compartment chondrocalcinosis. No acute osseous abnormality right knee. us Viki Gar(R)(CT), Cong(R) IMG DIAGNOSTIC IMAGING PROCEDURES Edited Result - Final * US Lower Extremity Veins Left (03/22/2016 11:30 AM CDT) Anatomical Region Laterality Modality Lower Extremity Left Ultrasound 03/22/2016 11:3 0 AM CDT Addenda Addendum by ProviderNapoleon M.D. on 03/22/2016 11:30 AM CDT RAD^^^MA US Venous Doppler Lower Ext Left 03/22/2016 11:30:00 Impressions 03/22/2016 11:43 AM CDT Negative for acute DVT, no evidence of a left lower extremity DVT. Left Rivera's cyst. Narrative 03/22/2016 11:43 AM CDT HISTORY: Lower left leg (ankle) swelling, abnormal / positive D-dimer. Technique: Grayscale and Doppler ultrasound imaging of the left lower extremity (and the right CFV) was performed. FINDINGS: Evaluation of the deep venous system in the left lower extremity demonstrates normal compressibility, Doppler blood flow, augmentation, and lack of intraluminal echogenicity at this time. There is a 3.9 x 1.6 x 1.3 cm left Rivera's (popliteal) cyst. Procedure Note Diego Ballesteros M.D. / ProviderNapoleon M.D. - 01/13/2017 HISTORY: Lower left leg (ankle) swelling, abnormal / positive D-dimer. Technique: Grayscale and Doppler ultrasound imaging of the left lower extremity (and the right CFV) was performed. FINDINGS: Evaluation of the deep venous system in the left lower extremity demonstrates normal compressibility, Doppler blood flow, augmentation, and lack of intraluminal echogenicity at this time. There is a 3.9 x 1.6 x 1.3 cm left Rivera's (popliteal) cyst. IMPRESSION: Negative for acute DVT, no evidence of a left lower extremity DVT. Left Rivera's cyst. us King Bynum R.V.T.SShari IMG US PROCEDUR ES Edited Result - Final * OPHTHALMOLOGY IMAGE EXAM (03/27/2000 12:00 PM CDT) Anatomical Region Laterality Modality Other 03/27/2000 12:0 0 PM CDT Addenda Addendum by Provider, Historical on 03/27/2000 12:00 PM CDT OPH^^^MCR US-Eye 03/27/2000 12:00:00 Historical Provider IMG NON RAD IMAGING PROCEDUR ES Final Result Visit Diagnoses Diagnosis Start Date Numbness Hand 12/12/2017 Strain Neck Initial 03/22/2019 Swelling Foot 03/10/2022 Edema 03/28/2022 Need Vaccine Immunization Tetanus And Diphtheria Toxoids And Pertussis 03/28/2022 Screening Cancer Colon 03/28/2022 Swelling Foot 04/06/2022 Paresthesia 06/20/2022 Swelling Foot 06/20/2022 Bronchiolitis With Respiratory Syncytial Virus 08/11/2022 Acute Bronchitis Due To COVID-19 01/28/2024 Bursitis 01/28/2024 Department Of Transportation Examination Department Of Motor Vehicles 09/24/2024 Department Of Transportation Examination Department Of Motor Vehicles 09/24/2024 Blindness Legal 09/24/2024 Loss Hearing Bilateral 09/24/2024 Additional Health Concerns Infection Onset Date Last Indicated Resolved Time Respiratory Syncytial Virus (RSV) 08/11/2022 022 08/11/2022 9:16 AM SHOP FOREMAN Care Teams Senior Dot Net Developer Relationship Specialty Start Date End Date Elsewhere, Pcp PCP - General Family Medicine 12/12/17
[2024-10-17 09:47] VITALS: BP 107/62; PULSE 54; RESP 20; TEMP 36.6; O2SAT 99; BMI 27.1
[2024-10-17 10:39] LABS: PCR FLU A Negative PCR FLU A (Negative); PCR FLU B Negative PCR FLU B (Negative); PCR RSV Negative PCR RSV (Negative); SARS PCR* Negative SARS-CoV-2 (Negative)
--- NOTE | 2024-10-17 11:29 | ED_ITS ---
HPI - General Adult General Chief complaint: Cough Stated complaint: Sore throat/Cough Time Seen by Provider: 10/17/24 11:22 History of Present Illness HPI narrative: This 68-year-old male comes in reporting upper respiratory symptoms that began almost 2 days ago. He reports cough, sore throat, nasal congestion. He does not report any fever. He arrives here with normal vital signs. Related Data Previous Rx's ?Medication ?Instructions ?Recorded acetaminophen 300 mg-codeine 30 mg 1 tab PO Q6H PRN pain #15 tabs 10/17/24 tablet Allergies Allergy/AdvReac Type Severity Reaction Status Date / Time No Known Drug Allergies Allergy Verified 08/15/23 11:33 Review of Systems Status of ROS: Reports: 10 or more systems reviewed and unremarkable except as noted in History and below Narrative: Constitutional: No fevers, no weight gain or loss. Eyes: No discharge. No vision changes. HENT: No congestion, no ear pain. He reports a sore throat. Cardiovascular: No chest pain, no palpitations. Respiratory: No shortness of breath, no wheezes. Frequent coughing. Gastrointestinal: No abdominal pain, no vomiting, no diarrhea. Genitourinary: No dysuria, no hematuria. Musculoskeletal: Normal range of motion. Skin: No rashes, no pruritis. Neurological: No dizziness, weakness, sensory change, speech change. Endo/Heme/Allergies: No bruising or bleeding. No polydipsia. Pysch: no suicidality, no anxiety, no insomnia. All other systems reviewed and are negative. 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 He drinks 1-2 alcoholic drinks approximately 5 times a week. Smoking Status: Never smoker Exam Narrative: Exam Narrative: Constitutional: Well-developed, well-nourished, no acute distress. HEENT: Normocephalic, atraumatic. Pharyngeal erythema without exudate or tonsillar hypertrophy. Neck: Normal range of motion. Nontender. Supple. Heart: Regular. No murmurs. Normal rate. Intact distal pulses. Lungs: Clear to auscultation. No chest discomfort. No wheezes, rhonchi, or rales. Abdomen: Normal bowel sounds. Nontender. No rebound tenderness. Genitalia: Deferred. Back: No midline tenderness. Normal range of motion. Extremities: Normal range of motion. No injury. Skin: Intact. No rash. Warm. No erythema or pallor. Neurologic: No altered sensation. No weakness. Alert and oriented. Psychiatric: No suicidality. No anxiety or depression. No insomnia. Nursing notes and vitals signs are reviewed. Const: Vital Signs, click to edit/add: Vital Signs - 24 hr 10/17/24 09:47 Temperature 97.8 F Pulse Rate [Pulse Oximeter] 54 L Respiratory Rate 20 Blood Pressure [Ri ght Upper Arm] 107/62 Pulse Oximetry 99 Oxygen Delivery Me thod Room Air Course Vital Signs Vital signs: Initial Vital Signs Temperature 97.8 F 10/17/24 09:47 Temperature Source Temporal Artery Scan 10/17/24 09:47 Pulse Rate 54 L 10/17/24 09:47 Respiratory Rate 20 10/17/24 09:47 Blood Pressure 107/62 10/17/24 09:47 Blood Pressure Mean 77 10/17/24 09:47 Pulse Oximetry 99 10/17/24 09:47 Oxygen Delivery Method Room Air 10/17/24 09:47 Vital Signs Temperature 97.8 F 10/17/24 09:47 Pulse Rate 54 L 10/17/24 09:47 Respiratory Rate 20 10/17/24 09:47 Blood Pressure 107/62 10/17/24 09:47 Pulse Oximetry 99 10/17/24 09:47 Oxygen Delivery Method Room Air 10/17/24 09:47 Temperature 97.8 F 10/17/24 09:47 Pulse Rate 54 L 10/17/24 09:47 Respiratory Rate 20 10/17/24 09:47 Blood Pressure 107/62 10/17/24 09:47 Pulse Oximetry 99 10/17/24 09:47 Oxygen Delivery Method Room Air 10/17/24 09:47 Medical Decision Making MDM Narrative Medical decision making narrative: This patient has upper respiratory infection symptoms. Nasal pharyngeal swab is obtained and returns negative for viruses tested. Nevertheless his symptoms are yet likely due to a virus. His exam is completely normal otherwise. Patient did receive an oral dose of dexamethasone 10 mg and I did provide a prescription for Tylenol 3. Lab Data Labs: Lab Results 10/17/24 Range/Units 09:51 SARS-CoV-2 (PCR) Negative SARS-CoV-2 (Negative) Influenza Type A (PCR) Negative PCR FLU A (Negative) Influenza Type B (PCR) Negative PCR FLU B (Negative) RSV (PCR) Negative PCR RSV (Negative) Discharge Plan Discharge Clinical Impression: Acute upper respiratory infection Patient Disposition: Home, Self-Care Condition: Stable Additional Instructions: Take medication as needed and indicated. Use [id number] cough medicine syrups also as needed and directed. Follow up with MD return if worsening. Prescriptions: New acetaminophen-codeine 300-30 mg tablet 1 tab PO Q6H PRN (Reason: pain) Qty: 15 0RF Follow Up/Referrals: Maged Beatty MD [Primary Care Provider] - Stand Alone Forms: StudyRoom Info Instructions
[2024-10-17] MEDS: dexAMETHasone 10 MG/ML inj PO (11:34)
[2024-10-17 11:43] VITALS: BP 113/85; PULSE 55; RESP 16
--- OUTSIDE RECORDS SUMMARY | 2024-10-17 11:43 | XMS_ITS | Encounter Summary ---
Author Organization [facility] Address [address] [place] [address] Care Team Providers Care Underground Electrician Name Role Phone Elsewhere, Pcp Primary Care Provider Unavailabl e Reason for Visit * Reason Comments DOT exam * Appointment Request (Routine) - Closed Specialty Diagnoses / Procedures Referred By Randall aguilera Referred To Contact Family Medicine Referral ID Status Reason Start Date Expiration Date Visits Re quested Visits Authorized [id number] Closed 09/12/2024 09/12/2025 1 1 Encounter Details Date Type Department Care Team (Latest Contact Info) Description 09/24/2024 8:30 AM OVERLOCK SLEEVE SETTER Office Visit Department of Family Medicine in [place], [place] [address] [place] [phone] Renny Mariano M.D. [address] [place] [phone] Department Of Transportation Examination Department Of Motor [...] on file Legal Sex Male 10:20 PM OVERLOCK SLEEVE SETTER Gender Identity Not on file Sexual Orientation Not on file documented as of this encounter Last Filed Vital Signs Vital Sign Reading Time Taken Comments Blood Pressure 116/70 09/24/2024 8:23 AM OVERLOCK SLEEVE SETTER Pulse 51 09/24/2024 8:23 AM OVERLOCK SLEEVE SETTER Temperature 36.6 C (97.8 F) 09/24/2024 8:23 AM OVERLOCK SLEEVE SETTER Respiratory Rate 20 09/24/2024 8:23 AM OVERLOCK SLEEVE SETTER Oxygen Saturation - - Inhaled Oxygen Concentration - - Weight 88 kg (194 lb) 09/24/2024 8:23 AM OVERLOCK SLEEVE SETTER Height 183 cm (6' 0.05) 09/24/2024 8:23 AM OVERLOCK SLEEVE SETTER Body Mass Index 26.28 09/24/2024 8:23 AM OVERLOCK SLEEVE SETTER documented in this encounter H&P Notes * [...] 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 He reports that [...] its position. He follows up with his statistical analyst regularly in [place]. He has history of bilateral sensorineural hearing [...] DUI. He reports that he had his driver guide license revoked approximately 6 months ago due [...] no concern regarding weakness of his hand head porter baggage. There was no history of fall. He was able to schedule an eye examination visit with his statistical analyst in [place] later this morning. He brought the documentation that was signed off by the statistical analyst. He was cleared and deemed to be [...] standard examination. He was evaluated by his statistical analyst earlier today and he had the vision [...] in understanding and agreement with the plan. LOCK SLEEVE SETTER documented in this encounter Plan of Treatment Not on file documented as of this encounter Results * Urinalysis, Dipstick (09/24/2024 8:20 AM OVERLOCK SLEEVE SETTER) Source Urine, Urine, Midstream 09/24/2024 8:20 AM OVERLOCK SLEEVE SETTER NPCL Clarity Clear Clear 09/24/2024 8:23 AM OVERLOCK SLEEVE SETTER NPCL Color Yellow 09/24/2024 8:23 AM OVERLOCK SLEEVE SETTER NPCL Comment: ----REFERENCE VALUE---- Colorless Yellow Yoko Blood Negative Negative 09/24/2024 8:23 AM OVERLOCK SLEEVE SETTER NPCL Nitrite Negative Negative 09/24/2024 8:23 AM OVERLOCK SLEEVE SETTER NPCL Leukocyte Esterase Negative Negative 09/24/2024 8:23 AM OVERLOCK SLEEVE SETTER NPCL Protein Negative mg/dL 09/24/2024 8:23 AM OVERLOCK SLEEVE SETTER NPCL Comment: ----REFERENCE VALUE---- Negative Trace Glucose Negative Negative mg/dL 09/24/2024 8:23 AM OVERLOCK SLEEVE SETTER NPCL Ketones, QI(U) Negative Negative mg/dL 09/24/2024 8:23 AM OVERLOCK SLEEVE SETTER NPCL Bilirubin Negative Negative 09/24/2024 8:23 AM OVERLOCK SLEEVE SETTER NPCL pH 7.0 5.0 - 8.0 09/24/2024 8:23 AM OVERLOCK SLEEVE SETTER NPCL Specific [place] 1.020 1.001 - 1.035 09/24/2024 8:23 AM OVERLOCK SLEEVE SETTER NPCL Urobilinogen 0.2 0.2 - 1.0 mg/dL 09/24/2024 8:23 AM OVERLOCK SLEEVE SETTER NPCL Urine (Urine, Midstream) 09/24/2024 8:20 AM OVERLOCK SLEEVE SETTER 09/24/2024 8:20 AM OVERLOCK SLEEVE SETTER us Renny Mariano M.D. LAB URINE ORDERABLES Final Resu lt [facility] [address] [place] [id number], [facility]CL [address] [place] [address] documented in this encounter Visit Diagnoses Diagnosis Department Of Transportation Examination Department Of Motor Vehicles- Primary Blindness Legal Loss Hearing Bilateral documented in this encounter Care Teams Underground Electrician Relationship Specialty Start Date End Date Elsewhere, Pcp PCP - General Family Medicine 12/12/17 documented as of this encounter
--- OUTSIDE RECORDS SUMMARY | 2024-10-17 11:43 | XMS_ITS | Continuity of Care Document ---
Author Organization [facility] Address [address] [place] [address] Phone Care Team Providers Care Hospice Home Care Coordinator Name Role Phone Hollie De La Torre DO Unavailable Unavailab le Advance Directives Directive Yes / No Effective Date File Name No Information Encounters Encounter Description Practice Location Reason(s) For Visit Diagnoses Date Provider Providers Copied on Encounter [facility], [address], [place], [address], [place] tel:[phone] [facility], No Information Dougie Browne. [address], [place], [address], [place]. tel:[phone] Family History Family Member Type Diagnosis Age At Onset No Information Payers Payer name Insurance type Covered alliance party ID Authoriza tion(s) No Information Social [...]
--- OUTSIDE RECORDS SUMMARY | 2024-10-17 11:43 | XMS_ITS | Continuity of Care Document ---
Author Organization [facility] Address [address] [place] [address] Phone Care Team Providers Care Swager Operator Name Role Phone Yazan Dee Unavailable Unavailab [...] VISIT EST Phone [facility], [address], [place], [id number], [place] tel:[phone] [facility] No Information Sabrina Hand. [facility], [address], [address], [place], [address], [place]. tel:[phone] Referring Provider: Eladio Loaiza, [facility] [address] [place], [address]. tel:[phone] Office/Outpat ient Visit,[facility], [address], [place], [id number], [place] tel:[phone] [facility] [place] Radiculopathy , cervical region Sabrina Hand. [facility], [address], [address], [place], [address], [place]. tel:[phone] Referring Provider: Eladio Loaiza, [facility] And [address], [address]. tel:[phone] Family History Family Member Type Diagnosis Age [...]
--- OUTSIDE RECORDS SUMMARY | 2024-10-17 11:43 | XMS_ITS | Encounter Summary ---
Author Organization [facility] Address [address] [place] [address] Care Team Providers Care Fuel Cell Designer Name Role Phone Elsewhere, Pcp Primary Care Provider Unavailabl e Reason for Visit * Reason Onset Date Comments Form Review 09/24/2024 DOT Encounter Details Date Type Department Care Team (Latest Contact Info) Description 09/24/2024 Clinical Communication Department of Family Medicine in [place], [place] [address] [place] [phone] Renny Mariano M.D. 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 Mariano has been entered into the [facility] National Registry website and form sent to scanning. DUST LABORER documented in this encounter Plan of Treatment Not on file documented as of this encounter Visit Diagnoses Not on filedocumented in this encounter Care Teams Fuel Cell Designer Relationship Specialty Start Date End Date Elsewhere, Pcp PCP - General Family Medicine 12/12/17 documented as of this encounter
--- OUTSIDE RECORDS SUMMARY | 2024-10-17 11:43 | XMS_ITS | Clinical Summary ---
Author Organization [facility] Address [address] [address] Phone Care Team Providers Care Industrial Electrical Engineer Name Role Phone Unavailable Primary Care Provider [...]
--- OUTSIDE RECORDS SUMMARY | 2024-10-17 11:43 | XMS_ITS | Continuity of Care Document ---
Author Organization [facility] Address [address] [place] [address] Care Team Providers Care Leather Production Artisan Name Role Phone Elsewhere, Pcp Primary Care Provider Unavailabl e Source Comments Patient records contain information from all sites at [facility]. For routine questions regarding patient records, call [phone] during business hours, M-F 8:00 AM - 5:00 PM Central Time. Record requests for emergency care only can be directed to [phone] at any time.[facility] Encounters Date Type Department Care Team Description 09/24/2024 Clinical Communication Department of Family Medicine in [address] [address] Renny Mariano M.D. Form Review (DOT) 09/24/2024 8:11 AM RUBBER CUTTING MACHINE TENDER - 09/24/2024 11:59 PM RUBBER CUTTING MACHINE TENDER Hospital Encounter Department of Laboratory Medicine in [place] [address] [place] [address] Renny Mariano M.D. Department Of Transportation Examination Department Of Motor Vehicles Discharge Disposition: Home or Self Care 09/24/2024 8:30 AM RUBBER CUTTING MACHINE TENDER Office Visit Department of Family Medicine in [address] [address] Renny Mariano M.D. Department Of Transportation Examination Department Of VBI Vaccines (Primary Dx); Blindness Legal; Loss Hearing Bilateral 02/05/2024 [facility] Emergency/Urgent Care Department [address] [place] [address] Francisco Javier Chino M.D., M.B.A. Med Refill 01/28/2024 8:53 AM CDT - 01/28/2024 9:20 AM CDT Emergency [place] Emergency/Urgent Care Department [facility] [address] [place] [address] Francisco Javier Chino M.D., M.B.A. Acute Bronchitis Due To COVID-19 (Primary Dx); Bursitis Discharge Disposition: Home or Self Care 08/11/2022 7:49 AM RUBBER CUTTING MACHINE TENDER - 08/11/2022 9:16 AM RUBBER CUTTING MACHINE TENDER Emergency [place] Emergency/Urgent Care Department [address] [place] [address], [place] [address] Venita Alonzo D.O. [place], Barrett R, M.D. Bronchiolitis With Respiratory Syncytial Virus (Primary Dx) Discharge Disposition: Home or Self Care 06/20/2022 2:45 PM CDT Office Visit Urgent Care, [facility], in [place] [address] [place] [address] Kinza Miller APRN, C.N.P., D.N.P. Paresthesia (Primary Dx); Swelling Foot Discharge Disposition: Home or Self Care 04/06/2022 Clinical Communication Department of Family Medicine in [place], [place] [address] [place] [address] Elsewhere, Pcp 03/28/2022 9:00 AM CDT Comprehensive Visit Department of Family Medicine in [place], [place] [address] [place] [address] Blair Rodriguez M.D. Edema (Primary Dx); Need Vaccine Immunization Tetanus And Diphtheria Toxoids And Pertussis; Screening Cancer Colon 03/10/2022 2:31 PM CDT - 03/10/2022 4:58 PM CDT Emergency [place] Emergency/Urgent Care Department [address] [place] [address] Matt Woods M.D. Swelling Foot (Primary Dx) Discharge Disposition: Home or Self Care 07/21/2021 Orders Only [facility] Rosalva Alegre D.O., M.B.A. 03/22/2019 5:10 AM CDT - 03/22/2019 6:04 AM CDT Emergency [place] Emergency/Urgent Care Department [address] [place] [address] Maite Cleveland M.D. Strain Neck Initial (Primary Dx) Discharge Disposition: Home or Self Care 12/12/2017 9:00 AM CDT Diagnostic Department of Neurology in [place], [place] [address] [place] [address] Chaitanya Laurent M.D. Numbness Hand 07/04/2017 8:00 AM CDT - 07/04/2017 11:59 PM CDT Hospital Encounter [facility] Sebastian Dean M.D. 06/20/2017 6:14 AM CDT - 06/20/2017 10:23 AM CDT [facility] 06/13/2017 10:56 AM CDT - 06/13/2017 11:59 PM CDT Hospital Encounter [facility] Sebastian Dean M.D. 03/22/2016 10:48 AM CDT - 03/22/2016 11:59 PM CDT Hospital Encounter [facility]X [facility] Chaitanya Verdugo M.D. 08/09/2015 6:05 AM RUBBER CUTTING MACHINE TENDER - 08/09/2015 6:52 AM RUBBER CUTTING MACHINE TENDER [facility] 08/21/2012 10:01 AM RUBBER CUTTING MACHINE TENDER - 08/21/2012 11:59 PM RUBBER CUTTING MACHINE TENDER Hospital Encounter HX NO MAPPING Raya Yoder [...] on file Legal Sex Male 10:20 PM RUBBER CUTTING MACHINE TENDER Gender Identity Not on file Sexual Orientation Not on file Last Filed Vital Signs Vital Sign Reading Time Taken Comments Blood Pressure 116/70 09/24/2024 8:23 AM RUBBER CUTTING MACHINE TENDER Pulse 51 09/24/2024 8:23 AM RUBBER CUTTING MACHINE TENDER Temperature 36.6 C (97.8 F) 09/24/2024 8:23 AM RUBBER CUTTING MACHINE TENDER Respiratory Rate 20 09/24/2024 8:23 AM RUBBER CUTTING MACHINE TENDER Oxygen Saturation 97% 01/28/2024 9:00 AM CDT Inhaled Oxygen Concentration - - Weight 88 kg (194 lb) 09/24/2024 8:23 AM RUBBER CUTTING MACHINE TENDER Height 183 cm (6' 0.05) 09/24/2024 8:23 AM RUBBER CUTTING MACHINE TENDER Body Mass Index 26.28 09/24/2024 8:23 AM RUBBER CUTTING MACHINE TENDER Plan of Treatment Not on file Procedures Procedure Name Priority Date/Time Associated Diagnosis Comments URINALYSIS, DIPSTICK Routine 09/24/2024 8:20 AM RUBBER CUTTING MACHINE TENDER Department Of Transportation Examination Department Of LOAG Vehicles INFLUENZA A, B, RSV, PCR, POCT STAT 01/28/2024 9:15 AM CDT SARS CORONAVIRUS 2, PCR RAPID, V STAT 01/28/2024 9:15 AM CDT DX CHEST AP OR PA AND LATERAL 2 VIEWS RAD - Semiurgent (Fast; most ED patients; some inpatients) 08/11/2022 8:16 AM RUBBER CUTTING MACHINE TENDER ECG STAT 08/11/2022 8:07 AM RUBBER CUTTING MACHINE TENDER INFLUENZA A, B, RSV, PCR, POCT Routine 08/11/2022 8:02 AM RUBBER CUTTING MACHINE TENDER INFLUENZA A, B, RSV, PCR, POCT STAT 08/11/2022 7:55 AM RUBBER CUTTING MACHINE TENDER SARS CORONAVIRUS 2, PCR RAPID, V STAT 08/11/2022 7:55 AM RUBBER CUTTING MACHINE TENDER URINALYSIS WITH MICROSCOPIC Routine 03/28/2022 9:59 AM [...] LATERAL 2 VIEWS Routine 08/21/2012 10:18 AM RUBBER CUTTING MACHINE TENDER OPHTHALMOLOGY IMAGE EXAM Routine 03/27/2000 12:00 PM CDT Results * Urinalysis, Dipstick (09/24/2024 8:20 AM RUBBER CUTTING MACHINE TENDER) Source Urine, Urine, Midstream 09/24/2024 8:20 AM RUBBER CUTTING MACHINE TENDER NPCL Clarity Clear Clear 09/24/2024 8:23 AM RUBBER CUTTING MACHINE TENDER NPCL Color Yellow 09/24/2024 8:23 AM RUBBER CUTTING MACHINE TENDER NPCL Comment: ----REFERENCE VALUE---- Colorless Yellow Yoko Blood Negative Negative 09/24/2024 8:23 AM RUBBER CUTTING MACHINE TENDER NPCL Nitrite Negative Negative 09/24/2024 8:23 AM RUBBER CUTTING MACHINE TENDER NPCL Leukocyte Esterase Negative Negative 09/24/2024 8:23 AM RUBBER CUTTING MACHINE TENDER NPCL Protein Negative mg/dL 09/24/2024 8:23 AM RUBBER CUTTING MACHINE TENDER NPCL Comment: ----REFERENCE VALUE---- Negative Trace Glucose Negative Negative mg/dL 09/24/2024 8:23 AM RUBBER CUTTING MACHINE TENDER NPCL Ketones, QI(U) Negative Negative mg/dL 09/24/2024 8:23 AM RUBBER CUTTING MACHINE TENDER NPCL Bilirubin Negative Negative 09/24/2024 8:23 AM RUBBER CUTTING MACHINE TENDER NPCL pH 7.0 5.0 - 8.0 09/24/2024 8:23 AM RUBBER CUTTING MACHINE TENDER NPCL Specific [place] 1.020 1.001 - 1.035 09/24/2024 8:23 AM RUBBER CUTTING MACHINE TENDER NPCL Urobilinogen 0.2 0.2 - 1.0 mg/dL 09/24/2024 8:23 AM RUBBER CUTTING MACHINE TENDER NPCL Urine (Urine, Midstream) 09/24/2024 8:20 AM RUBBER CUTTING MACHINE TENDER 09/24/2024 8:20 AM RUBBER CUTTING MACHINE TENDER us Renny Mariano M.D. LAB URINE ORDERABLES Final Resu lt [facility] [address] [place] [address], [facility] [place] [address] * SARS Coronavirus 2, PCR Rapid Symptomatic [...] at the following links: For Healthcare Providers: https://www.fda.gov/media/244530/download For Patients: https://www.fda.gov/media/733467/download SARS Coronavirus 2, Source, Rapid Swab, Nasopharynx 01/28/2024 9:25 AM CDT NPRG Swab (Nasopharynx) 01/28/2024 9:15 AM CDT 01/28/2024 9:25 AM CDT Francisco Javier Chino M.D., M.B.A. LAB MICROBIOLOGY - GENERAL ORDERABLES Final Result Performing Organization Address [facility] Co de Phone Number [facility] [address] [place] [address], [place] [address] [address] [place] [address] * Influenza A/B and RSV, PCR, Point [...] - DEVICE Final Result Performing Organization Address [facility] Co de Phone Number [facility] [address] [place] [address], [place] [address] [address] [place] [address] * DX Chest AP or PA and Lateral 2 Views (08/11/2022 8:16 AM RUBBER CUTTING MACHINE TENDER) Only the most recent of2 resultswithin the time period is included. Anatomical Region Laterality Modality Chest, Thoracic RST LOS, Tho racic ARZ LOS, Thoracic FLA LOS N/A Digital Radiography 08/11/2022 8:21 AM RUBBER CUTTING MACHINE TENDER Impressions 08/11/2022 8:22 AM RUBBER CUTTING MACHINE TENDER Lungs are clear. Calcified hilar lymph nodes. Normal heart size. No change since 08/21/2012. Narrative 08/11/2022 8:22 AM RUBBER CUTTING MACHINE TENDER EXAM: DX CHEST AP OR PA AND LATERAL 2 VIEWS Procedure Note Jeremy Euceda M.D. - 08/11/2022 EXAM: DX CHEST AP OR PA AND LATERAL 2 VIEWS IMPRESSION: Lungs are clear. Calcified hilar lymph nodes. Normal heart size. No changesince 08/21/2012. us Tri Peewee V. Alonzo D.O. IMG DIAGNOSTIC IMAGING PRO CEDURES Final Result * ECG 12 Lead (08/11/2022 8:07 AM RUBBER CUTTING MACHINE TENDER) Ventricular Rate ECG/Min 61 BPM MUSE DC Interval 170 ms MUSE QRSD Interval 76 ms MUSE QT Interval 398 ms MUSE QTC Interval 400 ms MUSE P [place] 49 degrees MUSE R [place] 8 degrees MUSE T Wave [place] 38 degrees MUSE 08/11/2022 8:07 AM RUBBER CUTTING MACHINE TENDER 08/11/2022 8:48 AM RUBBER CUTTING MACHINE TENDER Impressions MUSE - 08/11/2022 8:17 AM RUBBER CUTTING MACHINE TENDER Normal sinus rhythm Cannot rule out Inferior [...] 8.0 03/28/2022 10:53 AM CDT NPCL Specific [place] 1.020 1.001 - 1.035 03/28/2022 10:53 AM [...] URINE ORDERABLES Edited Resu lt - Final [facility] [address] [place] [address], [facility] NPCL [facility] [address] [place] [address] NPRG [facility] [address] [place] [address] * Sedimentation Rate (03/28/2022 9:55 AM CDT) Sedimentation Rate, B 5 0 - 22 mm/1 h 03/28/2022 3:27 PM CDT MKTO Blood (Blood, Venous) 03/28/2022 9:55 AM CDT 03/28/2022 2:53 PM CDT Blair Rodriguez M.D. LAB BLOOD ADD-ON Final Result [facility] [address] [place] [address], [facility] MKTO [facility] [address] [place] [address] * CRP (C-Reactive Protein) (03/28/2022 9:55 AM CDT) C-Reactive Protein (CRP), P <3.0 <=8.0 mg/L 03/28/2022 10:41 AM CDT NPRG Blood (Blood, Venous) 03/28/2022 9:55 AM CDT 03/28/2022 10:07 AM CDT Blair Rodriguez M.D. LAB BLOOD ADD-ON Final Result [facility] [address] [place] [address], [place] NPRG [facility] [address] [place] [address] * Creatinine with Estimated GFR (03/28/2022 9:55 AM CDT) Creatinine 1.02 0.74 - 1.35 mg/dL 03/28/2022 10:41 AM CDT NPRG eGFR-Black/Afric an Faroese 88 >=60 mL/min/BSA 03/28/2022 10:41 AM CDT NPRG Comment: ----ADDITIONAL INFORMATION---- Estimated GFR calculated using the 2009 CKD_EPI creatinine equation. eGFR Non-Black/Vi n Faroese 76 >=60 mL/min/BSA 03/28/2022 10:41 AM CDT NPRG Comment: ----ADDITIONAL INFORMATION---- Estimated GFR calculated using the 2009 CKD_EPI creatinine equation. Blood (Blood, Venous) 03/28/2022 9:55 AM CDT 03/28/2022 10:07 AM CDT Blair Rodriguez M.D. LAB BLOOD ADD-ON Final Result [facility] [address] [place] [address], [facility] [place] [address] [address] [place] [address] * US Lower Extremity Veins Right (03/10/2022 [...] and management can be found on the [employer] site. Link [email or web address].[email or web address]/topic/clinical-answers/cnt-17599907/[email or web address]-[email or web address] [email or web address] Procedure Note Harjinder León M.D. - 03/10/2022 [...] thrombosis and management can be found on theHomeSphere site. Linkhttps://[employer] Project.[email or web address]/topic/clinical-answers/cnt-03936630/[facility] -2049 1725 IMPRESSION: Negative for acute DVT. [...] us Matt Woods M.D. IMG DIAGNOSTIC IMAGING [facility] Final Result * Morphology Evaluation (03/10/2022 2:56 PM CDT) RBC Morphology Normal 03/10/2022 3:29 PM CDT NPRG PLT Morphology Normal 03/10/2022 3:29 PM CDT NPRG PLT Estimate Adequate Adequate 03/10/2022 3:29 PM CDT NPRG Blood 03/10/2022 2:56 PM CDT 03/10/2022 2:59 PM CDT us Matt Woods M.D. LAB BLOOD ADD-ON Final Resul t [facility] [address] [place] [address], [facility] NPRG [facility] [address] [place] [address] * (ABNORMAL) CBC with Differential, Blood (03/10/2022 [...] M.D. LAB BLOOD ADD-ON Final Resul t [facility] [address] [place] [address], [facility] NPRG [facility] [address] [place] [address] * Uric Acid (03/10/2022 2:56 PM CDT) Uric Acid, P 4.6 3.7 - 8.0 mg/dL 03/10/2022 3:23 PM CDT NPRG Blood (Blood, Venous) 03/10/2022 2:56 PM CDT 03/10/2022 2:59 PM CDT us Matt Woods M.D. LAB BLOOD ADD-ON Final Resul t [facility] [address] [place] [address], [facility] NPRG [facility] [address] [place] [address] * EMG (12/12/2017 8:01 AM CDT) Impressions [...] Virus (RSV) 08/11/2022 022 08/11/2022 9:16 AM RUBBER CUTTING MACHINE TENDER Care Teams Leather Production Artisan Relationship Specialty Start Date End Date Elsewhere, Pcp PCP - General Family Medicine 12/12/17
--- OUTSIDE RECORDS SUMMARY | 2024-10-17 11:43 | XMS_ITS | Encounter Summary ---
Author Organization [facility] Address [address] [place] [address] Care Team Providers Care Linen Room Supervisor Name Role Phone Elsewhere, Pcp Primary Care Provider Unavailabl e Encounter Details Date Type Department Care Team (Latest Contact Info) Description 09/24/2024 8:11 AM RESISTANCE WELDING MACHINE OPERATOR - 09/24/2024 11:59 PM RESISTANCE WELDING MACHINE OPERATOR Hospital Encounter Department of Laboratory Medicine in [place], [place] [address] [place] [phone] Renny Mariano M.D. [address] [place] [id number] Department Of Transportation Examination Department Of Motor [...] on file Legal Sex Male 10:20 PM RESISTANCE WELDING MACHINE OPERATOR Gender Identity Not on file Sexual Orientation Not on file documented as of this encounter Plan of Treatment Not on file documented as of this encounter Procedures Procedure Name Priority Date/Time Associated Diagnosis Comments URINALYSIS, DIPSTICK Routine 09/24/2024 8:20 AM RESISTANCE WELDING MACHINE OPERATOR Department Of Transportation Examination Department Of Matchbook documented in this encounter Results * Urinalysis, Dipstick (09/24/2024 8:20 AM RESISTANCE WELDING MACHINE OPERATOR) Source Urine, Urine, Midstream 09/24/2024 8:20 AM RESISTANCE WELDING MACHINE OPERATOR NPCL Clarity Clear Clear 09/24/2024 8:23 AM RESISTANCE WELDING MACHINE OPERATOR NPCL Color Yellow 09/24/2024 8:23 AM RESISTANCE WELDING MACHINE OPERATOR NPCL Comment: ----REFERENCE VALUE---- Colorless Yellow Yoko Blood Negative Negative 09/24/2024 8:23 AM RESISTANCE WELDING MACHINE OPERATOR NPCL Nitrite Negative Negative 09/24/2024 8:23 AM RESISTANCE WELDING MACHINE OPERATOR NPCL Leukocyte Esterase Negative Negative 09/24/2024 8:23 AM RESISTANCE WELDING MACHINE OPERATOR NPCL Protein Negative mg/dL 09/24/2024 8:23 AM RESISTANCE WELDING MACHINE OPERATOR NPCL Comment: ----REFERENCE VALUE---- Negative Trace Glucose Negative Negative mg/dL 09/24/2024 8:23 AM RESISTANCE WELDING MACHINE OPERATOR NPCL Ketones, QI(U) Negative Negative mg/dL 09/24/2024 8:23 AM RESISTANCE WELDING MACHINE OPERATOR NPCL Bilirubin Negative Negative 09/24/2024 8:23 AM RESISTANCE WELDING MACHINE OPERATOR NPCL pH 7.0 5.0 - 8.0 09/24/2024 8:23 AM RESISTANCE WELDING MACHINE OPERATOR NPCL Specific [place] 1.020 1.001 - 1.035 09/24/2024 8:23 AM RESISTANCE WELDING MACHINE OPERATOR NPCL Urobilinogen 0.2 0.2 - 1.0 mg/dL 09/24/2024 8:23 AM RESISTANCE WELDING MACHINE OPERATOR NPCL Urine (Urine, Midstream) 09/24/2024 8:20 AM RESISTANCE WELDING MACHINE OPERATOR 09/24/2024 8:20 AM RESISTANCE WELDING MACHINE OPERATOR us Renny Mariano M.D. LAB URINE ORDERABLES Final Resu lt [facility] [address] [place] [address], [facility] NPCL [facility] [place] - [address] [place] [id number] documented in this encounter Visit Diagnoses Diagnosis Department Of Transportation Examination Department Of Motor Vehicles documented in this encounter Care Teams Linen Room Supervisor Relationship Specialty Start Date End Date Elsewhere, Pcp PCP - General Family Medicine 12/12/17 documented as of this encounter
== END 2024-10-17 11:45 | disposition home or self-care (01) ==
PROVIDERS: Emergency Provider Emergency Medicine Emergency Medical Services; PCP Family Medicine
DX: J06.9 Acute upper respiratory infection, unspecified (principal)
CPT/HCPCS: 87631; 99283; 99284; J1100